=== PATIENT | male | born 1950 | race African-American/Black ===

== ENCOUNTER 2018-12-23 17:41 | Emergency (ER) | payer MEDICARE, MEDICAID ==
[~2018-12-23] VITALS: Ht 167.6 cm; Wt 62.0 kg
[2018-12-23 18:12] VITALS: BP 118/71
[2018-12-23] MEDS ORDERED: SODIUM CHLORIDE 0.9% 1,000 ML IV ONE (18:18)
[2018-12-23] MEDS ORDERED: PHENYTOIN SODIUM EXTENDED 100MG CAPSULE PO ONE (18:30)
== END 2018-12-23 18:36 | disposition left against medical advice (07) ==
LOC: ER 17:41 → EDBD 17:41 → ER 18:36
DX: R56.9 Unspecified convulsions (principal); Z91.19 Patient's noncompliance with other medical treatment and regimen
CPT/HCPCS: 99283; J7030